=== PATIENT | female | born 1985 | race Caucasian/White ===

== ENCOUNTER 2020-12-07 16:11 | Emergency (ER) | payer OTHER ==
[~2020-12-07] VITALS: Ht 147.3 cm; Wt 81.0 kg
[2020-12-07 16:25] VITALS: BP 138/84
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
[2020-12-07] MEDS ORDERED: HYDROcodone/APAP 5/325 TABLET ONE (17:21)
[2020-12-07] MEDS ORDERED: ONDANSETRON ODT 4 MG ONE (17:21)
[2020-12-07] MEDS ORDERED: HYDROcodone/APAP 5/325 TABLET PO PRN ×2 (17:30)
[2020-12-07] MEDS ORDERED: ONDANSETRON ODT 4 MG PO ONE (17:30)
== END 2020-12-07 19:25 | disposition home or self-care (01) ==
LOC: ED 19:01
DX: S39.012A Strain of muscle, fascia and tendon of lower back, initial encounter (principal); S16.1XXA Strain of muscle, fascia and tendon at neck level, initial encounter; S73.101A Unspecified sprain of right hip, initial encounter; S09.90XA Unspecified injury of head, initial encounter; Z79.899 Other long term (current) drug therapy; X58.XXXA Exposure to other specified factors, initial encounter; Y93.89 Activity, other specified; Y92.89 Other specified places as the place of occurrence of the external cause; Y99.8 Other external cause status
CPT/HCPCS: 70450; 72110; 72125; 72190; 99285; Q0162